=== PATIENT | female | born 1970 | race African-American/Black ===

== ENCOUNTER 2020-06-11 12:38 | Emergency (ER) | payer OTHER, SELFPAY ==
--- NOTE | ~2020-06-11 | CT_ITS ---
EXAMINATION: CT ANGIOGRAM CHEST CLINICAL INFORMATION: Chest pain. Rule out dissection. COMPARISON: None TECHNIQUE: Multiple axial images were obtained through the chest after the administration of 70 mL of Omnipaque 350 intravenous contrast. Extensive vascular post-processing including two-dimensional and three-dimensional reformatted images were created and reviewed on an independent workstation. This CT examination was performed using dose optimization techniques as appropriate, variously including the following: *Automated exposure control *Adjustment of mA and/or kV according to patient size (this includes techniques or standardized protocols for targeted exams where dose is matched to indication/reason for exam; i.e. extremities or head) *Use of iterative reconstruction technique DLP: 356 mGy-cm FINDINGS: The heart is upper normal in size. The thoracic aorta is normal in caliber. No aneurysm or dissection is seen. Great vessel origins are normal. The pulmonary arteries are patent. No pulmonary embolism is seen. There is no pericardial effusion. There are no enlarged hilar or mediastinal lymph nodes. The esophagus is unremarkable. The lungs are clear. There is no pleural effusion, pleural thickening or pneumothorax. No chest wall mass or enlarged axillary lymph nodes are seen. There is a small low-attenuation lesion seen in the upper pole the left kidney measuring 4 mm axial image 58 series 6. This is difficult to characterize due to small size and probably represents a small cyst. There are mild degenerative changes of the spine. CT/CT angio chest IMPRESSION: Upper normal-size heart. Otherwise unremarkable exam. No evidence of aneurysm or dissection.
[2020-06-11 12:43] VITALS: BP 158/97; PULSE 76; RESP 18; TEMP 36.5; O2SAT 100; BMI 33.6
--- NOTE | 2020-06-11 12:45 | ECG_ITS ---
Test Reason : CHEST PAIN Blood Pressure : / mmHG Vent. Rate : 085 BPM Atrial Rate : 085 BPM P-R Int : 132 ms QRS Dur : 084 ms QT Int : 384 ms P-R-T Axes : 067 056 039 degrees QTc Int : 456 ms Normal sinus rhythm Possible Left atrial enlargement Borderline ECG No previous ECGs available Referred By: Haven Lucas Electronically Signed By:Maurisio Acosta
--- NOTE | 2020-06-11 12:48 | ED_ITS ---
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) Timing of current episode: constant and other (slightly improved) Prior episodes: No Onset: during rest Pain location: left chest Pain radiation: none Severity: moderate Quality: tightness Relieving factors: nothing Exacerbating factors: nothing Associated symptoms: dyspnea and other (dizzy) Treatment prior to arrival: none Related Data Allergies Allergy/AdvReac Type Severity Reaction Status Date / Time No Known Allergies Allergy Verified 06/11/20 12:45 Review of Systems Review of Systems: Constitutional : No Weight loss, No Fever, No Chills ENT/Mouth : No sore throat, No Rhinorrhea Eyes: No Eye Pain, No Swelling Cardiovascular : pos Chest Pain, pos SOB, no Dyspnea on Exertion, No Orthopnea, No Edema, No Palpitations Respiratory : No Cough, No Sputum Gastrointestinal : pos Nausea, No Vomiting, No Diarrhea, No abdominal Pain, No Hematochezia, No Melena Genitourinary : No Dysuria, No Urinary Frequency Musculoskeletal : No joint pain, No Myalgias, No Joint Swelling Skin : No Skin Lesions, No rash Neuro : No Weakness, No Numbness, No Dizziness, No Headache Psych : No Anxiety/Panic, No Depression Heme/Lymph: No Bruising, No Lymphadenopathy Endocrine : No Polyuria, No Polydipsia All other systems reviewed and are negative [facility] Past Medical History Attestation statement: The following information was validated with the patient. Medical History Hypertension Social History Social History (Updated 06/11/20 @ 12:59 by Haven Lucas DO) Smoking Status: Never smoker Use of substances other than those prescribed or required for medical reasons: No Advance Directives: No Advance Directives Information Provided: No Physical Exam Vital Signs: Vital Signs: Last Vital Signs Temp 97.7 F 06/11/20 12:43 Pulse 67 06/11/20 15:08 Resp 16 06/11/20 13:30 BP 132/70 06/11/20 15:08 Pulse Ox 100 06/11/20 13:30 Body Mass Index 33.6 Appearance: Alert. Oriented X3. No acute distress. Anxious Eyes: Pupils equal, round and reactive to light. ENT: Pharynx normal. Neck: Normal inspection. Neck supple. CVS: Normal heart rate and rhythm. Pulses normal. Respiratory: No respiratory distress. Breath sounds normal. Abdomen: Soft and nontender. femoral pulses intact and symmetric Skin: Skin warm and dry. Normal skin color. Normal skin turgor. Extremities: No lower extremity edema. No calf ttp Neuro: Oriented X 3. No motor deficit. No sensory deficit. Course Course Course Narrative: chest pain improved. 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) - no fam hx of CAD, no prior chest pain at this time she is PERC negative will obtain labs, serial EKGs, CTA for dissection ordered along with morphine and zofran , of note the patient has not had chest pain when she exerts herself or exercises Lab Data Result diagrams: 06/11/20 13:00 06/11/20 13:00 Labs: Lab Results 06/11/20 06/11/20 06/11/20 Range/Units 13:00 13:00 13:00 WBC 8.0 (4.8-10.8) X10*3/uL RBC 4.30 (4.20-5.50) X10*6/uL Hgb 12.0 (12.0-16.0) g/dl Hct 36.1 L (37-47) % MCV 84.0 (80-98) fL MCH 27.9 (27.0-33.0) pg MCHC 33.2 (31.0-35.0) g/dl RDW 15.0 (11.0-16.0) % Plt Count 313 (160-400) X10*3/uL MPV 10.1 (9.4-12.3) fL Immature Gran % (Auto) 0.1 (0.0-0.4) % Neut % (Auto) 28.2 L (45-73) % Lymph % (Auto) 64.5 H (20-40) % [place] % (Auto) 4.8 (2-11) % Eos % (Auto) 1.9 (0-4) % Baso % (Auto) 0.5 (0-2) % Lymph # (Auto) 5.2 H (1.2-4.9) X10*3/uL [place] # (Auto) 0.4 (0.1-1.2) X10*3/uL Eos # (Auto) 0.2 (0.0-0.4) X10*3/uL Baso # (Auto) 0.0 (0.0-0.2) X10*3/uL Abs Immat Gran (auto) 0.01 (0.00-0.03) X10*3/uL Absolute Neuts (auto) 2.3 (2.0-8.3) X10*3/uL Absolute Nucleated RBC 0.000 (0.0-0.012) X10*3/uL Nucleated RBC % (auto) 0.0 (0.0-0.2) /100WBC Smear Tech's Comments VERIFIED PT 11.8 (10.8-13.0) SEC INR 1.0 (0.9-1.1) APTT 38.7 H (24.1-38.0) SEC D-Dimer < 200 NG/ML Sodium 135 (135-145) mmol/L Potassium 3.8 (3.3-5.1) mmol/L Chloride 101 (96-108) mmol/L Carbon Dioxide 23 (22-29) mmol/L Anion Gap 15 (12-20) BUN 11 (9-16) mg/dL Creatinine 0.92 (0.5-1.4) mg/dL Estim Creat Clear Calc 76.9 Estimated GFR > 60 Random Glucose 94 (60-115) mg/dL Calcium 9.2 (8.4-10.2) mg/dL Magnesium 1.9 (1.6-2.6) mg/dL Total Bilirubin 0.5 (0.0-1.0) mg/dL Direct Bilirubin 0.2 (0.0-0.5) mg/dL AST 20 (5-31) U/L ALT 16 (0-31) U/L Alkaline Phosphatase 58 (39-117) U/L Troponin I High Sens (<3.5-17.0) ng/L Total Protein 7.0 (6.5-8.0) g/dL Albumin 4.2 (3.5-5.0) g/dL 06/11/20 Range/Units 13:00 WBC (4.8-10.8) X10*3/uL RBC (4.20-5.50) X10*6/uL Hgb (12.0-16.0) g/dl Hct (37-47) % MCV (80-98) fL MCH (27.0-33.0) pg MCHC (31.0-35.0) g/dl RDW (11.0-16.0) % Plt Count (160-400) X10*3/uL MPV (9.4-12.3) fL Immature Gran % (Auto) (0.0-0.4) % Neut % (Auto) (45-73) % Lymph % (Auto) (20-40) % [place] % (Auto) (2-11) % Eos % (Auto) (0-4) % Baso % (Auto) (0-2) % Lymph # (Auto) (1.2-4.9) X10*3/uL [place] # (Auto) (0.1-1.2) X10*3/uL Eos # (Auto) (0.0-0.4) X10*3/uL Baso # (Auto) (0.0-0.2) X10*3/uL Abs Immat Gran (auto) (0.00-0.03) X10*3/uL Absolute Neuts (auto) (2.0-8.3) X10*3/uL Absolute Nucleated RBC (0.0-0.012) X10*3/uL Nucleated RBC % (auto) (0.0-0.2) /100WBC Smear Tech's Comments PT (10.8-13.0) SEC INR (0.9-1.1) APTT (24.1-38.0) SEC D-Dimer NG/ML Sodium (135-145) mmol/L Potassium (3.3-5.1) mmol/L Chloride (96-108) mmol/L Carbon Dioxide (22-29) mmol/L Anion Gap (12-20) BUN (9-16) mg/dL Creatinine (0.5-1.4) mg/dL Estim Creat Clear Calc Estimated GFR Random Glucose (60-115) mg/dL Calcium (8.4-10.2) mg/dL Magnesium (1.6-2.6) mg/dL Total Bilirubin (0.0-1.0) mg/dL Direct Bilirubin (0.0-0.5) mg/dL AST (5-31) U/L ALT (0-31) U/L Alkaline Phosphatase (39-117) U/L Troponin I High Sens < 3.5 (<3.5-17.0) ng/L Total Protein (6.5-8.0) g/dL Albumin (3.5-5.0) g/dL ECG Data ECG #1: Attestation: I personally reviewed and interpreted this ECG as follows: ECG interpretation date: 06/11/20 ECG interpretation time: 12:57 Interpretation: Rate: 85 Rhythm: NSR [place]: normal Normal P waves. Normal CASE. Normal QRS complex. ST T wave: nonspecific V2-V3 no TOMAS qTC: normal prior studies: none The study has been interpreted contemporaneously by me. EKG #2 Rate: 74 Rhythm: NSR [place]: normal Normal P waves. Normal CASE. Normal QRS complex. ST T wave : normal, no TOMAS qTC: normal prior studies: no acute ischemia The study has been interpreted contemporaneously by me. . ECG #3: Attestation: I personally reviewed and interpreted this ECG as follows: ECG interpretation date: 06/11/20 ECG interpretation time: 14:51 Interpretation: Rate: 67 Rhythm: NSR [place]: normal Normal P waves. Normal CASE. Normal QRS complex. ST T wave : nonspecific, no TOMAS qTC: normal prior studies: no change no acute ischemia The study has been interpreted contemporaneously by me. . Discharge Plan Discharge Clinical Impression: Chest pain Qualifiers: Chest pain type: unspecified Qualified Code(s): R07.9 - Chest pain, unspecified Instructions: Chest Pain (ED) Additional Instructions: return to ED for any worsening symptoms or concerns Referrals: Physician,Unknown [Primary Care Provider] - 3 days (referral for outpatient stress test) Stand Alone Forms: Work/School Release
[2020-06-11 13:11] LABS: Basophils Percent Auto 0.5 % (0-2); Eosinophils Absolute Auto 0.2 X10*3/uL (0.0-0.4); Eosinophils Percent Auto 1.9 % (0-4); Hematocrit 36.1 % (37-47); Imm Gran Abs Auto 0.01 X10*3/uL (0.00-0.03); Imm Gran Pct Auto 0.1 % (0.0-0.4); Lymphocytes Absolute Auto 5.2 X10*3/uL (1.2-4.9); Lymphocytes Percent Auto 64.5 % (20-40); MANUAL DIFF FLAG SCAN; Mean Corpuscular HGB Conc 33.2 g/dl (31.0-35.0); Mean Corpuscular Hemoglobin 27.9 pg (27.0-33.0); Mean Platelet Volume 10.1 fL (9.4-12.3); Monocytes Absolute Auto 0.4 X10*3/uL (0.1-1.2); Monocytes Percent Auto 4.8 % (2-11); Neutrophils Absolute Auto 2.3 X10*3/uL (2.0-8.3); Neutrophils Percent Auto 28.2 % (45-73); Platelet Count 313 X10*3/uL (160-400); SCAN SMEAR FLAG 1
[2020-06-11 13:16] LABS: Prothrombin Time 11.8 SEC (10.8-13.0)
[2020-06-11 13:19] LABS: Partial Thromboplastin Time 38.7 SEC (24.1-38.0)
[2020-06-11 13:23] LABS: D Dimer < 200 NG/ML
[2020-06-11] MEDS: iohexoL 350 MG/ML 100 ML INFUS..BTL 70 ML IV (13:23)
[2020-06-11] MEDS: ondansetron HCL 4 MG/2 ML VIAL IVPUSH (13:27)
[2020-06-11] MEDS: Morphine Sulfate 4 MG/ML CARTRIDGE IVPUSH (13:29)
[2020-06-11 13:30] VITALS: BP 170/86; PULSE 67; RESP 16; O2SAT 100
[2020-06-11 13:32] LABS: SLIDE REVIEW VERIFIED
[2020-06-11 13:35] LABS: Alanine Aminotransferase 16 U/L (0-31); Albumin Level 4.2 g/dL (3.5-5.0); Alkaline Phosphatase 58 U/L (39-117); Anion Gap 15 (12-20); Aspartate Amino Transferase 20 U/L (5-31); Bilirubin Direct 0.2 mg/dL (0.0-0.5); Bilirubin Total 0.5 mg/dL (0.0-1.0); Blood Urea Nitrogen 11 mg/dL (9-16); Calcium 9.2 mg/dL (8.4-10.2); Carbon Dioxide 23 mmol/L (22-29); Chloride 101 mmol/L (96-108); Creatinine Clr Calc Pharmacy 76.9; Estimated Glomerular Filt Rate > 60; Glucose Random 94 mg/dL (60-115); Magnesium 1.9 mg/dL (1.6-2.6); Potassium 3.8 mmol/L (3.3-5.1); Sodium 135 mmol/L (135-145)
[2020-06-11 13:38] LABS: Troponin-I High Sensitivity < 3.5 ng/L (<3.5-17.0)
--- NOTE | 2020-06-11 14:36 | ECG_ITS ---
Test Reason : CHEST PAIN Blood Pressure : / mmHG Vent. Rate : 074 BPM Atrial Rate : 074 BPM P-R Int : 132 ms QRS Dur : 094 ms QT Int : 410 ms P-R-T Axes : 053 055 035 degrees QTc Int : 455 ms Normal sinus rhythm Normal ECG When compared with ECG of 11-JUN-2020 12:41, No significant change was found Referred By: Haven Lucas Electronically Signed By:Maurisio Acosta
--- NOTE | 2020-06-11 14:45 | ECG_ITS ---
Test Reason : REPEAT Blood Pressure : / mmHG Vent. Rate : 067 BPM Atrial Rate : 067 BPM P-R Int : 136 ms QRS Dur : 084 ms QT Int : 420 ms P-R-T Axes : 043 035 037 degrees QTc Int : 443 ms Normal sinus rhythm Nonspecific T wave abnormality Abnormal ECG When compared with ECG of 11-JUN-2020 12:46, No significant change was found Referred By: Haven Lucas Electronically Signed By:Maurisio Acosta
--- NOTE | 2020-06-11 15:07 | PC.NURSE ---
RESTING IN NAD. PAIN 3/10. FEELING BETTER. WILL HAVE REPEAT TROP AT 1600
[2020-06-11 15:08] VITALS: BP 132/70; PULSE 67
[2020-06-11] MEDS: Aspirin 81 MG TAB.CHEW 162 MG PO (15:36)
[2020-06-11 16:05] VITALS: BP 135/69; PULSE 72; RESP 17; TEMP 36.4; O2SAT 100
[2020-06-11 17:06] LABS: Troponin-I High Sensitivity < 3.5 ng/L (<3.5-17.0)
--- NOTE | 2020-06-11 17:50 | PC.NURSE ---
CLEARED FOR DC BY PROVIDER AFTER NEG SECOND TROP. HAS RIDE. NO DISTRESS
== END 2020-06-11 17:51 | disposition home or self-care (01) ==
PROVIDERS: Emergency Provider Emergency Medicine
DX: R07.9 Chest pain, unspecified (principal); I10 Essential (primary) hypertension; R42 Dizziness and giddiness
CPT/HCPCS: 36415; 71275; 80048; 80076; 83735; 84484; 85025; 85379; 85610; 85730; 93005; 96374; 96375; 99283; 99284; J2270; J2405; Q9967

== ENCOUNTER 2020-08-11 10:42 | Emergency (ER) | payer OTHER, SELFPAY ==
--- NOTE | 2020-08-11 | ECG_ITS ---
Test Reason : CHEST PAIN Blood Pressure : / mmHG Vent. Rate : 079 BPM Atrial Rate : 079 BPM P-R Int : 128 ms QRS Dur : 088 ms QT Int : 374 ms P-R-T Axes : 053 055 040 degrees QTc Int : 428 ms Normal sinus rhythm Nonspecific T wave abnormality Abnormal ECG When compared with ECG of 11-JUN-2020 14:46, No significant change was found Referred By: Generic ED Physician Electronically Signed By:Maurisio Acosta
--- NOTE | ~2020-08-11 | XR_ITS ---
EXAMINATION: XR CHEST CLINICAL INFORMATION: Chest pain COMPARISON: CT angiography of the chest of June 11, 2020 TECHNIQUE: AP portable view of the chest was obtained. FINDINGS: No significant abnormality is noted involving the heart, lungs, mediastinum, bony thorax or soft tissues. XR/XR chest 1V IMPRESSION: No acute disease.
[2020-08-11 10:51] VITALS: BP 164/89; PULSE 80; RESP 15; TEMP 36.8; O2SAT 99; BMI 33.5
[2020-08-11 11:14] VITALS: BP 138/91; PULSE 82; RESP 14; O2SAT 95
--- NOTE | 2020-08-11 11:22 | ED_ITS ---
HPI - Chest Pain General Chief Complaint: Chest Pain Stated Complaint: CHEST PAIN Time Seen by Provider: 08/11/20 11:21 Source: patient Mode of arrival: ambulatory Limitations: no limitations History of Present Illness HPI narrative: 50-year-old female who came to the emergency department for further evaluation of chest pain. 50-year-old female presented with right-sided chest pain, started at 06:00 (5 hours ago). Pain is localized to the right side of the chest with no radiation, pain was described as constant and moderate 5/10, pain is worsening with taking a deep breath, nothing improves the pain. No coughing, no trauma to the chest. 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 Related Data Allergies Allergy/AdvReac Type Severity Reaction Status Date / Time No Known Allergies Allergy Verified 06/11/20 12:45 Review of Systems Review of Systems: All other systems are reviewed and are negative Constitutional: Reports as per HPI and Reports no additional constitutional complaints Eyes: Reports as per HPI and Reports no additional eye complaints Reports system reviewed and no additional complaints, except as documented Cardiovascular: Reports as per HPI and Reports no additional cardiovascular complaints Respiratory: Reports as per HPI and Reports no additional respiratory complaints Gastrointestinal: Reports as per HPI and Reports no additional gastrointestinal complaints Genitourinary: Reports no additional female genitourinary complaints Musculoskeletal: Reports no additional musculoskeletal complaints Skin/Breast: Reports system reviewed and no additional complaints, except as docu Psychiatric: Reports no additional psychiatric complaints Endocrine: Reports no additional endocrine complaints Hematologic/Lymphatic: Reports no additional hematologic/lymphatic complaints Allergic/Immunologic: Reports no additional allergic/immunologic complaints Reports system reviewed and no additional complaints, except as documented and Reports Abnormal speech present [facility] Past Medical History Medical History Hypertension Social History Social History Alcohol intake: never Smoking Status: Never smoker Use of substances other than those prescribed or required for medical reasons: No Advance Directives: Yes Advance Directives Information Provided: Yes Advance Directives on File: No Physical Exam Vital Signs: Vital Signs: Last Vital Signs Temp 97.7 F 08/11/20 14:17 Pulse 66 08/11/20 14:17 Resp 20 08/11/20 14:17 BP 119/76 08/11/20 14:17 Pulse Ox 98 08/11/20 14:17 Body Mass Index 33.5 Vital signs have been reviewed as appeared to be correct. Blood pressure normal. Heart rate normal. Respiration rate normal. Temperature normal. Oxygen saturation normal. Appearance: Alert. Oriented X3. No acute distress. Head: Normal external exam. Normocephalic. Atraumatic. No [place] signs noted. No raccoon eyes noted Eyes: PERRLA. EOMI. Conjunctiva and sclera normal. Eyelids normal. ENT: TM's Normal. Pharynx normal. Uvula midline. Moist mucous membranes. No trismus noted. No drooling noted. No muffled voice noted. Neck: Normal inspection. Neck supple. FROM. No adenopathy. Thyroid Normal. No meningeal signs. No neck mass noted. CVS: Normal heart rate and rhythm. Heart sound normal. No murmurs noted. Pulses normal throughout. Respiratory: No respiratory distress. Painless inspiration. Breath sounds normal. No wheezes/rales/rhonchi noted. Chest nontender. No accessory muscle usage noted or decreased air movement noted. Abdomen: Soft and nontender. Bowel sounds normal in all 4 quadrants. No distention noted. No organomegaly noted. No visible injury noted. Back: No CVA tenderness. Full range of motion noted. Skin: Skin warm and dry. Normal skin color. Normal skin turgor. No rashes/lesions/lacerations noted. Extremities: No lower extremity edema. Extremities exhibit normal range of motion. Extremities nontender. Neuro: Oriented X 3. No motor deficit. No sensory deficit. Reflexes normal. Course Course Course Narrative: Assessment and plan. 50-year-old female came in with right-sided chest pain since 06:00 o'clock in the morning, patient had unremarkable EKG for ACS, 2 troponins are negative, D- dimer is also negative. Pain is likely to be chest wall related. Patient was instructed to keep out the appointment for her next stress test next months, and use NSAIDs if needed for pain. Patient had a similar presentation to the ED 2 months ago and had PE workup CT which was unremarkable. MDM - Chest Pain Lab Data Attestation: I reviewed the patient's lab results. Result diagrams: 08/11/20 11:57 08/11/20 11:57 Labs: Lab Results 08/11/20 08/11/20 08/11/20 Range/Units 11:49 11:49 11:49 WBC (4.8-10.8) X10*3/uL RBC (4.20-5.50) X10*6/uL Hgb (12.0-16.0) g/dl Hct (37-47) % MCV (80-98) fL MCH (27.0-33.0) pg MCHC (31.0-35.0) g/dl RDW (11.0-16.0) % Plt Count (160-400) X10*3/uL MPV (9.4-12.3) fL Immature Gran % (Auto) (0.0-0.4) % Neut % (Auto) (45-73) % Lymph % (Auto) (20-40) % [place] % (Auto) (2-11) % Eos % (Auto) (0-4) % Baso % (Auto) (0-2) % Lymph # (Auto) (1.2-4.9) X10*3/uL [place] # (Auto) (0.1-1.2) X10*3/uL Eos # (Auto) (0.0-0.4) X10*3/uL Baso # (Auto) (0.0-0.2) X10*3/uL Abs Immat Gran (auto) (0.00-0.03) X10*3/uL Absolute Neuts (auto) (2.0-8.3) X10*3/uL Absolute Nucleated RBC (0.0-0.012) X10*3/uL Nucleated RBC % (auto) (0.0-0.2) /100WBC D-Dimer NG/ML Sodium (135-145) mmol/L Potassium (3.3-5.1) mmol/L Chloride (96-108) mmol/L Carbon Dioxide (22-29) mmol/L Anion Gap (12-20) BUN (9-16) mg/dL Creatinine (0.5-1.4) mg/dL Estim Creat Clear Calc Estimated GFR Random Glucose (60-115) mg/dL Calcium (8.4-10.2) mg/dL Total Bilirubin (0.0-1.0) mg/dL Direct Bilirubin (0.0-0.5) mg/dL AST (5-31) U/L ALT (0-31) U/L Alkaline Phosphatase (39-117) U/L Troponin I High Sens (<3.5-17.0) ng/L B-Natriuretic Peptide (<100) pg/mL Total Protein (6.5-8.0) g/dL Albumin (3.5-5.0) g/dL Lipase (8-78) U/L Urine Color YELLOW Urine Appearance CLEAR Urine pH 7.0 (5.0-8.0) Ur Specific [place] 1.010 (1.005-1.025) Urine Protein NEG (NEG-TRACE) MG/DL Urine Glucose (UA) NEG (NEG) MG/DL Urine Ketones NEG (NEG) MG/DL Urine Blood NEG (NEG) Urine Nitrite NEG (NEG) Ur Leukocyte Esterase NEG (NEG) Urine Test NEGATIVE (NEGATIVE) COVID-19 (AR) Negative (Negative) COVID-19 Clin Com See Note 08/11/20 08/11/20 08/11/20 Range/Units 11:57 11:57 11:57 WBC 6.1 (4.8-10.8) X10*3/uL RBC 4.10 L (4.20-5.50) X10*6/uL Hgb 11.3 L (12.0-16.0) g/dl Hct 35.4 L (37-47) % MCV 86.3 (80-98) fL MCH 27.6 (27.0-33.0) pg MCHC 31.9 (31.0-35.0) g/dl RDW 15.5 (11.0-16.0) % Plt Count 258 (160-400) X10*3/uL MPV 9.9 (9.4-12.3) fL Immature Gran % (Auto) 0.2 (0.0-0.4) % Neut % (Auto) 50.6 (45-73) % Lymph % (Auto) 41.4 H (20-40) % [place] % (Auto) 5.1 (2-11) % Eos % (Auto) 2.0 (0-4) % Baso % (Auto) 0.7 (0-2) % Lymph # (Auto) 2.5 (1.2-4.9) X10*3/uL [place] # (Auto) 0.3 (0.1-1.2) X10*3/uL Eos # (Auto) 0.1 (0.0-0.4) X10*3/uL Baso # (Auto) 0.0 (0.0-0.2) X10*3/uL Abs Immat Gran (auto) 0.01 (0.00-0.03) X10*3/uL Absolute Neuts (auto) 3.1 (2.0-8.3) X10*3/uL Absolute Nucleated RBC 0.000 (0.0-0.012) X10*3/uL Nucleated RBC % (auto) 0.0 (0.0-0.2) /100WBC D-Dimer < 200 NG/ML Sodium 139 (135-145) mmol/L Potassium 4.2 (3.3-5.1) mmol/L Chloride 105 (96-108) mmol/L Carbon Dioxide 26 (22-29) mmol/L Anion Gap 12 (12-20) BUN 14 (9-16) mg/dL Creatinine 0.84 (0.5-1.4) mg/dL Estim Creat Clear Calc 84.1 Estimated GFR > 60 Random Glucose 96 (60-115) mg/dL Calcium 9.0 (8.4-10.2) mg/dL Total Bilirubin 0.4 (0.0-1.0) mg/dL Direct Bilirubin < 0.2 (0.0-0.5) mg/dL AST 16 (5-31) U/L ALT 16 (0-31) U/L Alkaline Phosphatase 58 (39-117) U/L Troponin I High Sens (<3.5-17.0) ng/L B-Natriuretic Peptide (<100) pg/mL Total Protein 6.6 (6.5-8.0) g/dL Albumin 4.0 (3.5-5.0) g/dL Lipase 40 (8-78) U/L Urine Color Urine Appearance Urine pH (5.0-8.0) Ur Specific [place] (1.005-1.025) Urine Protein (NEG-TRACE) MG/DL Urine Glucose (UA) (NEG) MG/DL Urine Ketones (NEG) MG/DL Urine Blood (NEG) Urine Nitrite (NEG) Ur Leukocyte Esterase (NEG) Urine Test (NEGATIVE) COVID-19 (AR) (Negative) COVID-19 Clin Com 08/11/20 Range/Units 11:57 WBC (4.8-10.8) X10*3/uL RBC (4.20-5.50) X10*6/uL Hgb (12.0-16.0) g/dl Hct (37-47) % MCV (80-98) fL MCH (27.0-33.0) pg MCHC (31.0-35.0) g/dl RDW (11.0-16.0) % Plt Count (160-400) X10*3/uL MPV (9.4-12.3) fL Immature Gran % (Auto) (0.0-0.4) % Neut % (Auto) (45-73) % Lymph % (Auto) (20-40) % [place] % (Auto) (2-11) % Eos % (Auto) (0-4) % Baso % (Auto) (0-2) % Lymph # (Auto) (1.2-4.9) X10*3/uL [place] # (Auto) (0.1-1.2) X10*3/uL Eos # (Auto) (0.0-0.4) X10*3/uL Baso # (Auto) (0.0-0.2) X10*3/uL Abs Immat Gran (auto) (0.00-0.03) X10*3/uL Absolute Neuts (auto) (2.0-8.3) X10*3/uL Absolute Nucleated RBC (0.0-0.012) X10*3/uL Nucleated RBC % (auto) (0.0-0.2) /100WBC D-Dimer NG/ML Sodium (135-145) mmol/L Potassium (3.3-5.1) mmol/L Chloride (96-108) mmol/L Carbon Dioxide (22-29) mmol/L Anion Gap (12-20) BUN (9-16) mg/dL Creatinine (0.5-1.4) mg/dL Estim Creat Clear Calc Estimated GFR Random Glucose (60-115) mg/dL Calcium (8.4-10.2) mg/dL Total Bilirubin (0.0-1.0) mg/dL Direct Bilirubin (0.0-0.5) mg/dL AST (5-31) U/L ALT (0-31) U/L Alkaline Phosphatase (39-117) U/L Troponin I High Sens < 3.5 (<3.5-17.0) ng/L B-Natriuretic Peptide 12 (<100) pg/mL Total Protein (6.5-8.0) g/dL Albumin (3.5-5.0) g/dL Lipase (8-78) U/L Urine Color Urine Appearance Urine pH (5.0-8.0) Ur Specific [place] (1.005-1.025) Urine Protein (NEG-TRACE) MG/DL Urine Glucose (UA) (NEG) MG/DL Urine Ketones (NEG) MG/DL Urine Blood (NEG) Urine Nitrite (NEG) Ur Leukocyte Esterase (NEG) Urine Test (NEGATIVE) COVID-19 (AR) (Negative) COVID-19 Clin Com Imaging Data Chest x-ray: Radiologist's impression: No acute intrathoracic pathology. ECG Data ECG #1: Interpretation: Normal sinus rhythm at 79 beats per minutes, normal axis, normal intervals, T-wave flattening in V4, V5. Discharge Plan Discharge Clinical Impression: Atypical chest pain Patient Disposition: Home, Self-Care Instructions: Chest Pain (ED) Additional Instructions: Keep the appointment for your stress test with your information broker. Referrals: Physician,Unknown [Primary Care Provider] - 2 days
[2020-08-11 12:05] LABS: MANUAL DIFF FLAG NO
[2020-08-11 12:06] LABS: Basophils Percent Auto 0.7 % (0-2); Eosinophils Absolute Auto 0.1 X10*3/uL (0.0-0.4); Hematocrit 35.4 % (37-47); Hemoglobin 11.3 g/dl (12.0-16.0); Imm Gran Abs Auto 0.01 X10*3/uL (0.00-0.03); Imm Gran Pct Auto 0.2 % (0.0-0.4); Lymphocytes Absolute Auto 2.5 X10*3/uL (1.2-4.9); Lymphocytes Percent Auto 41.4 % (20-40); Mean Corpuscular HGB Conc 31.9 g/dl (31.0-35.0); Mean Corpuscular Hemoglobin 27.6 pg (27.0-33.0); Mean Corpuscular Volume 86.3 fL (80-98); Mean Platelet Volume 9.9 fL (9.4-12.3); Monocytes Absolute Auto 0.3 X10*3/uL (0.1-1.2); Monocytes Percent Auto 5.1 % (2-11); Neutrophils Absolute Auto 3.1 X10*3/uL (2.0-8.3); Neutrophils Percent Auto 50.6 % (45-73); Platelet Count 258 X10*3/uL (160-400); Red Cell Distribution Width 15.5 % (11.0-16.0); White Blood Count 6.1 X10*3/uL (4.8-10.8)
[2020-08-11 12:14] LABS: Glucose Urine UA NEG (NEG); Leukocyte Esterase Urine NEG (NEG); Nitrite Urine NEG (NEG); Urine Blood NEG (NEG); Urine Ketones NEG (NEG); Urine Protein NEG (NEG-TRACE)
[2020-08-11 12:15] LABS: Appearance Urine CLEAR; Color Urine YELLOW
[2020-08-11 12:16] LABS: UPreg QC Valid YES; Urine Pregnancy NEGATIVE (NEGATIVE)
[2020-08-11 12:18] LABS: D Dimer < 200 NG/ML
[2020-08-11 12:28] LABS: COVID-19 Test Negative (Negative); IDNOW Serial# 9DD0AD1C
[2020-08-11 12:41] LABS: Alanine Aminotransferase 16 U/L (0-31); Alkaline Phosphatase 58 U/L (39-117); Anion Gap 12 (12-20); Aspartate Amino Transferase 16 U/L (5-31); Bilirubin Direct < 0.2 mg/dL (0.0-0.5); Bilirubin Total 0.4 mg/dL (0.0-1.0); Blood Urea Nitrogen 14 mg/dL (9-16); Carbon Dioxide 26 mmol/L (22-29); Chloride 105 mmol/L (96-108); Creatinine Clr Calc Pharmacy 84.1; Estimated Glomerular Filt Rate > 60; Glucose Random 96 mg/dL (60-115); Lipase 40 U/L (8-78); Potassium 4.2 mmol/L (3.3-5.1); Sodium 139 mmol/L (135-145); Total Protein 6.6 g/dL (6.5-8.0)
[2020-08-11 12:42] VITALS: BP 135/77; PULSE 71; RESP 12; TEMP 36.5; O2SAT 100
[2020-08-11 12:51] LABS: Troponin-I High Sensitivity < 3.5 ng/L (<3.5-17.0)
[2020-08-11 13:08] LABS: B Type Natriuretic Peptide 12 pg/mL (<100)
[2020-08-11 14:17] VITALS: BP 119/76; PULSE 66; RESP 20; TEMP 36.5; O2SAT 98
[2020-08-11 16:08] VITALS: BP 138/83; PULSE 69; RESP 12; TEMP 36.4; O2SAT 99
[2020-08-11 16:27] LABS: Troponin-I High Sensitivity < 3.5 ng/L (<3.5-17.0)
[2020-08-11 17:26] VITALS: BP 144/82; PULSE 76; RESP 18; TEMP 36.3; O2SAT 100
== END 2020-08-11 17:48 | disposition home or self-care (01) ==
PROVIDERS: Emergency Provider Emergency Medicine
DX: R07.89 Other chest pain (principal); R07.81 Pleurodynia; I10 Essential (primary) hypertension; Z20.822 Contact with and (suspected) exposure to COVID-19; Z79.899 Other long term (current) drug therapy
CPT/HCPCS: 36415; 71045; 80048; 80076; 81003; 81025; 83690; 83880; 84484; 85025; 85379; 87635; 93005; 99284; 99285

== ENCOUNTER 2021-01-06 14:38 | Emergency (ER) | payer OTHER, SELFPAY ==
[2021-01-06 14:40] VITALS: BP 184/103; PULSE 94; RESP 18; TEMP 36.3; O2SAT 99; BMI 33.5
--- NOTE | 2021-01-06 16:10 | ED_ITS ---
HPI - Dental/Oral General Chief complaint: Dental/Oral Stated complaint: Tooth Pain Time Seen by Provider: 01/06/21 15:06 Source: patient Mode of arrival: ambulatory Limitations: no limitations History of Present Illness HPI Narrative: Right dental pain that started last night. Patient when she got to work today and started eating sinhala fries, the pain was 10/10. She is able to eat and drink, is able to swallow, she does have a dentist. She can open her mouth all the way. No fevers. States she had the same pain 3 months ago but it went away. MD Complaint: tooth pain Location: Tooth # (2) Teeth map: 1. painful Onset (ago): day(s) (1) Duration: constant Severity: severe Severity scale (1-10): 10 Relieving factors: nothing Exacerbating factors: chewing Context: history of dental caries Treatment prior to arrival: none Related Data Previous Rx's Medication Instructions Recorded clindamycin HCl 300 mg capsule 300 mg PO Q6H 10 Days #40 cap 01/06/21 oxycodone 5 mg capsule 5 mg PO Q8H PRN #9 cap 01/06/21 Allergies Allergy/AdvReac Type Severity Reaction Status Date / Time No Known Allergies Allergy Verified 01/06/21 14:40 Review of Systems Review of Systems: Constitutional : No Weight loss, No Fever, No Chills, No Night Sweats,No Fatigue, No Malaise ENT/Mouth : dental pain, No Hearing loss, No Ear Pain, No Nasal Congestion, No Sinus Pain, No Hoarseness, No sore throat, No Rhinorrhea, NoSwallowing Difficulty Eyes: No Eye Pain, No Swelling, No Redness, No Foreign Body, NoDischarge, No Vision Changes Cardiovascular : No Chest Pain, No SOB, No Dyspnea on Exertion, NoOrthopnea, No Edema, No Palpitations Respiratory : No Cough, No Sputum, No Wheezing, No Smoke Exposure, No Dyspnea Gastrointestinal : No Nausea, No Vomiting, No Diarrhea, NoConstipation, No abdominal Pain, No Hematochezia, No Melena Musculoskeletal : No joint pain, No Myalgias, No Joint Swelling Skin : No Skin Lesions, No rash Neuro : No Weakness, No Numbness, No Paresthesias, No Loss ofConsciousness, No Dizziness, No Headache PMFSH Past Medical History Medical History Hypertension Social History Social History Alcohol intake: never Advance Directives: No Physical Exam Vital Signs: Vital Signs: Last Vital Signs Temp 97.4 F 01/06/21 14:40 Pulse 94 01/06/21 14:40 Resp 18 01/06/21 14:40 BP 184/103 H 01/06/21 14:40 Pulse Ox 99 01/06/21 14:40 Body Mass Index 33.5 Const: General: cooperative, no acute distress, well developed, alert and awake Nutritional Appearance: well nourished Orientation/consciousness: patient oriented x3 Limitations: no limitations HENMT: Head: Yes normocephalic and Yes atraumatic Ears: hearing grossly normal bilaterally Face and sinus: Yes sinuses nontender, No erythema and No edema Mouth: Normal oral and palatal mucosa present and moist mucous membranes Teeth and gingiva: gingiva normal and fair dentition Teeth image: 1. area of tenderness, no fluctuance or drainable abscess Throat: Yes posterior oropharynx normal Eyes: Conjunctivae: conjunctivae normal Pupils: Equal, round and reactive pupils present EOM: EOMs intact bilaterally Neck: Neck: Yes full ROM, Yes no lymphadenopathy and Yes supple Resp: Effort & Inspection: normal respiratory effort and able to speak in complete sentences Auscultation: clear to auscultation bilaterally, no crackles, no rales, no rhonchi and no wheezes Cardio: Rate: regular rate Rhythm: regular rhythm Heart sounds: S1 normal heart sound present and S2 normal heart sound present Skin: General skin exam: no rashes or lesions noted Neuro: General: patient oriented x3, tone normal and moves all extremities Cranial nerves: Yes Equal, round and reactive pupils present Extrem: General: Yes normal to inspection and Yes full ROM Psych: Appearance: grossly normal Affect: normal affect Attitude: coope rative Thought process: Normal thought process present Course Course Course Narrative: Dental discomfort .top right molar that started today. ? No fevers.? No trismus.? Patient can eat and drink.? On exam, patient has stable vitals, can open her mouth all the way, tooth number 2 in painful.? No palpable gingival abscess, no cellulitis of the gingiva.? No submandibular swelling, no swelling of the floor of the mouth. Mild right facial swelling. Discharge Plan Discharge Clinical Impression: Toothache Patient Disposition: Home, Self-Care Instructions: Dental Abscess (ED) Additional Instructions: Please call your dentist. Call them today, get an appointment as soon as poss ible. Start your antibiotics and take them every 6 hours. Take the pain medicine is needed. If you have trouble opening her mouth, fevers, if you cannot eat or drink, feels nausea or vomiting, or any other new or concerning symptoms please return to the Emergency fever Prescriptions: New oxycodone 5 mg capsule 5 mg PO Q8H PRN (Reason: pain) Qty: 9 RF: 0 clindamycin HCl 300 mg capsule 300 mg PO Q6H 10 Days Qty: 40 RF: 0 Stand Alone Forms: Work/School Release Interventions: ED Discharge Assessment Last Done: 01/06/21 15:48 Discharge Date/Time: 01/06/21 15:49
== END 2021-01-06 15:49 | disposition home or self-care (01) ==
PROVIDERS: Emergency Provider Emergency Medicine
DX: K08.89 Other specified disorders of teeth and supporting structures (principal)
CPT/HCPCS: 99283

== ENCOUNTER 2021-04-05 12:48 | Emergency (ER) | payer OTHER, SELFPAY ==
[2021-04-05 12:52] VITALS: BP 162/104; PULSE 92; RESP 18; TEMP 36.3; O2SAT 100; BMI 31.7
[2021-04-05] MEDS: Acetaminophen 325 MG TABLET 650 MG PO (13:12)
[2021-04-05] MEDS: LORazepam 1 MG TABLET PO (13:13)
--- NOTE | 2021-04-05 13:44 | ED_ITS ---
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 Earlier this afternoon, patient states that she had a negative interaction with a co-worker, patient states that she has had multiple incidents in the past. Patient became very anxious, started crying. Patient did not pass out, head injury, denies chest pain or shortness of breath. Related Data Previous Rx's Medication Instructions Recorded clindamycin HCl 300 mg capsule 300 mg PO Q6H 10 Days #40 cap 01/06/21 oxycodone 5 mg capsule 5 mg PO Q8H PRN #9 cap 01/06/21 Allergies Allergy/AdvReac Type Severity Reaction Status Date / Time No Known Allergies Allergy Verified 01/06/21 14:40 Review of Systems Review of Systems: Constitutional : No Weight loss, No Fever, No Chills, No Night Sweats, No Fatigue, No Malaise ENT/Mouth : No Hearing loss, No Ear Pain, No Nasal Congestion, No Sinus Pain, No Hoarseness, No sore throat, No Rhinorrhea, No Swallowing Difficulty Eyes: No Eye Pain, No Swelling, No Redness, No Foreign Body, No Discharge, No Vision Changes Cardiovascular : No Chest Pain, No SOB, No Dyspnea on Exertion, No Orthopnea, No Edema, No Palpitations Respiratory : No Cough, No Sputum, No Wheezing, No Smoke Exposure, No Dyspnea Gastrointestinal : No Nausea, No Vomiting, No Diarrhea, No Constipation, No abdominal Pain, No Hematochezia, No Melena Genitourinary : no irregular bleeding, No Dysuria, No Urinary Frequency, No Hematuria, No Urinary Incontinence, No Urgency, No Flank Pain, No Urinary Flow Changes, No Hesitancy Musculoskeletal : No joint pain, No Myalgias, No Joint Swelling Skin : No Skin Lesions, No rash Neuro : No Weakness, No Numbness, No Paresthesias, No Loss of Consciousness, No Dizziness, complaining of Headache Psych : Complain of anxiety, No Depression, No SI/HI/AH/VH, having trouble with co-worker Heme/Lymph: No Bruising, No Bleeding,No Lymphadenopathy Endocrine : No Polyuria, No Polydipsia, No Temperature Intolerance [facility] Past Medical History Medical History Hypertension Social History Social History Alcohol intake: never Patient Tobacco Use Status: Never used Tobacco Use of substances other than those prescribed or required for medical reasons: No Advance Directives: No Advance Directives Information Provided: No Physical Exam Vital Signs: Vital Signs: Last Vital Signs Temp 97.3 F 04/05/21 12:52 Pulse 92 04/05/21 12:52 Resp 18 04/05/21 12:52 BP 162/104 H 04/05/21 12:52 Pulse Ox 100 04/05/21 12:52 BMI result Body Mass Index 31.7 Const: Other: Appearance: Alert. Oriented X3. Very anxious, tearful Eyes: Pupils equal, round and reactive to light. ENT: Pharynx normal. Neck: Normal inspection. Neck supple. No lymph nodes noted. No crepitus CVS: Normal heart rate and rhythm. Pulses normal. Normal S1 and S2 Respiratory: No respiratory distress. Breath sounds normal. No Wheezing. No rales Abdomen: Soft and nontender. No rigidity. No distention. good BS x4 Skin: Skin warm and dry. Normal skin color. Normal skin turgor. Extremities: No lower extremity edema. No Lacerations. No Rash Neuro: Oriented X 3. No motor deficit. No sensory deficit. Moving all extermities. No slurred speech. Course Course Course Narrative: Patient was given 1 dose of p.o. Ativan and Tylenol for her headache. Overall, patient feeling better, more calm, patient was given the choice to be discharged home and states there was the day of versus returning to work. Patient requested to be sent back to work. Discharge Plan Discharge Clinical Impression: Acute anxiety Patient Disposition: Home, Self-Care Instructions: Anxiety (ED) Additional Instructions: Please follow-up with your primary care physician tomorrow. If you have any worsening or new symptoms, please return to the emergency room or call 911 Prescriptions: No Action oxycodone 5 mg capsule 5 mg PO Q8H PRN (Reason: pain) Qty: 9 RF: 0 clindamycin HCl 300 mg capsule 300 mg PO Q6H 10 Days Qty: 40 RF: 0 Stand Alone Forms: Work/School Release
--- NOTE | 2021-04-05 14:05 | PC.NURSE ---
nad, no complaints, skin wpd, states she is ready to go home
[2021-04-05 14:19] VITALS: BP 154/87; PULSE 86; RESP 16; O2SAT 100
== END 2021-04-05 15:04 | disposition home or self-care (01) ==
PROVIDERS: Emergency Provider Emergency Medicine
DX: F41.9 Anxiety disorder, unspecified (principal); R51.9 Headache, unspecified; I10 Essential (primary) hypertension; Z72.89 Other problems related to lifestyle; Z56.4 Discord with boss and workmates
CPT/HCPCS: 99283; 99284

== ENCOUNTER 2021-07-20 10:08 | Emergency (ER) | payer OTHER, SELFPAY ==
--- NOTE | ~2021-07-20 | CT_ITS ---
EXAMINATION: CT ABDOMEN AND PELVIS WITHOUT CONTRAST CLINICAL INFORMATION: Right upper and right lower quadrant abdominal and flank pain. COMPARISON: None TECHNIQUE: Multidetector volumetric imaging was performed from the superior aspect of the liver through the pubic symphysis. Sagittal and coronal reformatted images were obtained on the technologist's workstation. This CT examination was performed using dose optimization techniques as appropriate, variously including the following: *Automated exposure control *Adjustment of mA and/or kV according to patient size (this includes techniques or standardized protocols for targeted exams where dose is matched to indication/reason for exam; i.e. extremities or head) *Use of iterative reconstruction technique DLP: 646 mGy-cm FINDINGS: Technically limited study due to motion related artifacts. LUNG BASES: Grossly unremarkable. Significant motion related artifacts are present. LIVER, GALLBLADDER, AND BILIARY TREE: The liver is normal in size, shape, and attenuation. No focal hepatic lesion or biliary ductal dilatation is present. The gallbladder is unremarkable with no evidence of radiopaque gallstones, gallbladder wall thickening, or obvious pericholecystic inflammatory changes. PANCREAS: Blurred pancreas, may represent subtle inflammatory changes versus motion. SPLEEN: Unremarkable. ADRENAL GLANDS: Unremarkable. KIDNEYS AND URETERS: The kidneys are normal in size, shape, and attenuation. No hydronephrosis, hydroureter, or calculi seen. No perinephric stranding. BLADDER: Unremarkable. GASTROINTESTINAL TRACT: The small and large bowel are unremarkable. The appendix is nonvisualized. Extensive fecal residual is noted within the large bowel. ABDOMINAL WALL: No significant hernia is appreciated. LYMPH NODES: There are no pathologically enlarged retroperitoneal, pelvic, groin, mesenteric lymphadenopathy present. VASCULAR: Mild atherosclerotic disease of the aorta. PELVIC VISCERA: There is no free fluid and/or free air. 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 CT/CT abdomen pelvis wo con IMPRESSION: 1. Technically limited study due to motion related artifacts. 2. Blurred pancreas, may represent subtle inflammatory changes versus motion. 3. No CT evidence of any free fluid or free air or radiopaque urinary tract calculi or obstruction. 4. 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 Fleischner guidelines were followed.
[2021-07-20 10:18] VITALS: BP 158/91; PULSE 77; RESP 18; TEMP 36.3; O2SAT 100; BMI 33.6
[2021-07-20 11:35] LABS: MANUAL DIFF FLAG NO
[2021-07-20 11:41] LABS: Basophils Absolute Auto 0.1 X10*3/uL (0.0-0.2); Basophils Percent Auto 0.9 % (0-2); Eosinophils Absolute Auto 0.1 X10*3/uL (0.0-0.4); Eosinophils Percent Auto 2.2 % (0-4); Hemoglobin 12.4 g/dl (12.0-16.0); Imm Gran Abs Auto 0.01 X10*3/uL (0.00-0.03); Imm Gran Pct Auto 0.2 % (0.0-0.4); Lymphocytes Absolute Auto 2.6 X10*3/uL (1.2-4.9); Lymphocytes Percent Auto 47.9 % (20-40); Mean Corpuscular HGB Conc 31.8 g/dl (31.0-35.0); Mean Corpuscular Hemoglobin 27.6 pg (27.0-33.0); Mean Corpuscular Volume 86.7 fL (80.0-98.0); Monocytes Absolute Auto 0.3 X10*3/uL (0.1-1.2); Monocytes Percent Auto 5.1 % (2-11); Neutrophils Absolute Auto 2.3 x10*3/uL (2.0-8.3); Neutrophils Percent Auto 43.7 % (45-73); Platelet Count 281 X10*3/uL (160-400); Red Cell Distribution Width 15.7 % (11.0-16.0); White Blood Count 5.3 X10*3/uL (4.8-10.8)
[2021-07-20 11:47] LABS: Anion Gap 10 (12-20); Blood Urea Nitrogen 10 mg/dL (9-16); Calcium 9.5 mg/dL (8.4-10.2); Carbon Dioxide 27 mmol/L (22-29); Chloride 106 mmol/L (96-108); Creatinine Clr Calc Pharmacy 74.5; Estimated Glomerular Filt Rate > 60; Glucose Random 91 mg/dL (60-115); Potassium 4.1 mmol/L (3.3-5.1); Sodium 139 mmol/L (135-145)
--- NOTE | 2021-07-20 12:30 | ED_ITS ---
HPI - Abdominal Pain General Chief Complaint: Abdominal Pain Stated Complaint: Abd pain Time Seen by Provider: 07/20/21 12:29 Source: patient Mode of arrival: ambulatory Limitations: no limitations History of Present Illness HPI narrative: Patient with sudden sharp up right quadrant pain. Never told she has gallbl adder issues. Now feeling the pain in the right groin. No N/V/D. Pain is constant but it varies in intensity. Patient denies flank pain. Denies hematuria or frequency. Patient has a history of 4 Csections MD elicited complaint: abdominal pain Onset (ago): hour(s) Pain Consistency: constant Location: RUQ and RLQ Severity: moderate Quality: sharp Associated symptoms: denies other symptoms Related Data Previous Rx's Medication Instructions Recorded clindamycin HCl 300 mg capsule 300 mg PO Q6H 10 Days #40 cap 01/06/21 oxycodone 5 mg capsule 5 mg PO Q8H PRN #9 cap 01/06/21 ondansetron 4 mg disintegrating 4 mg PO Q8H 4 Days #12 tab 07/20/21 tablet pantoprazole 40 mg tablet,delayed 40 mg PO DAILY #20 tab 07/20/21 release (Protonix) Allergies Allergy/AdvReac Type Severity Reaction Status Date / Time No Known Allergies Allergy Verified 07/20/21 10:20 Review of Systems Constitutional: Reports no additional constitutional complaints Eyes: Reports no additional eye complaints Denies dizziness Cardiovascular: Reports no additional cardiovascular complaints Respiratory: Reports as per HPI Gastrointestinal: Reports no additional gastrointestinal complaints Genitourinary: Reports no additional female genitourinary complaints Musculoskeletal: Reports no additional musculoskeletal complaints Skin/Breast: Denies rash Reports system reviewed and no additional complaints, except as documented, Denies dizziness and Denies Sensory deficit (Neuro) Psychiatric: Denies anxiety [facility] Past Medical History Medical History delivery delivered Hypertension Social History Social History Alcohol intake: never Patient Tobacco Use Status: Never used Tobacco Advance Directives: No Advance Directives Information Provided: No Physical Exam ED Vital Signs: Vital Signs - 24 hr 07/20/21 10:18 07/20/21 13:45 07/20/21 16:58 Temperature 97.4 F 98.4 F 98.3 F Pulse Rate 77 61 63 Respiratory Rate 18 14 14 Blood Pressure 158/91 H 148/87 H 144/97 H Pulse Oximetry 100 98 100 BMI result Body Mass Index 33.6 Neuro Sensory Exam: No Sensory deficit (Neuro) Course Reevaluation(s) Reevaluation #1: soft abdomen, no guarding or rebound, tolerating po will dc home Time: 17:55 MDM - Abdominal Pain Lab Data Result diagrams: 07/20/21 11:26 07/20/21 11:26 Labs: Lab Results 07/20/21 07/20/21 07/20/21 Range/Units 11:26 11:26 14:06 WBC 5.3 (4.8-10.8) X10*3/uL RBC 4.50 (4.20-5.50) X10*6/uL Hgb 12.4 (12.0-16.0) g/dl Hct 39.0 (37.0-47.0) % MCV 86.7 (80.0-98.0) fL MCH 27.6 (27.0-33.0) pg MCHC 31.8 (31.0-35.0) g/dl RDW 15.7 (11.0-16.0) % Plt Count 281 (160-400) X10*3/uL MPV 10.0 (9.4-12.3) fL Immature Gran % (Auto) 0.2 (0.0-0.4) % Neut % (Auto) 43.7 L (45-73) % Lymph % (Auto) 47.9 H (20-40) % [place] % (Auto) 5.1 (2-11) % Eos % (Auto) 2.2 (0-4) % Baso % (Auto) 0.9 (0-2) % Lymph # (Auto) 2.6 (1.2-4.9) X10*3/uL [place] # (Auto) 0.3 (0.1-1.2) X10*3/uL Eos # (Auto) 0.1 (0.0-0.4) X10*3/uL Baso # (Auto) 0.1 (0.0-0.2) X10*3/uL Abs Immat Gran (auto) 0.01 (0.00-0.03) X10*3/uL Absolute Neuts (auto) 2.3 (2.0-8.3) x10*3/uL Absolute Nucleated RBC 0.000 (0.0-0.012) X10*3/uL Nucleated RBC % (auto) 0.0 (0.0-0.2) /100WBC Sodium 139 (135-145) mmol/L Potassium 4.1 (3.3-5.1) mmol/L Chloride 106 (96-108) mmol/L Carbon Dioxide 27 (22-29) mmol/L Anion Gap 10 L (12-20) BUN 10 (9-16) mg/dL Creatinine 0.94 (0.5-1.4) mg/dL Estim Creat Clear Calc 74.5 Estimated GFR > 60 Random Glucose 91 (60-115) mg/dL Calcium 9.5 (8.4-10.2) mg/dL Total Bilirubin 0.3 (0.0-1.0) mg/dL Direct Bilirubin < 0.2 (0.0-0.5) mg/dL AST 18 (5-31) U/L ALT 21 (0-31) U/L Alkaline Phosphatase 68 (39-117) U/L Total Protein 7.5 (6.5-8.0) g/dL Albumin 4.5 (3.5-5.0) g/dL Lipase 24 (8-78) U/L Urine Color STRAW Urine Appearance CLEAR Urine pH 6.5 (5.0-8.0) Ur Specific [place] 1.010 (1.005-1.025) Urine Protein NEG (NEG-TRACE) MG/DL Urine Glucose (UA) NEG (NEG) MG/DL Urine Ketones NEG (NEG) MG/DL Urine Blood NEG (NEG) Urine Nitrite NEG (NEG) Ur Leukocyte Esterase NEG (NEG) Imaging Data CT scan - abdomen: Radiologist's impression: poor quality but grossly normal Discharge Plan Discharge Clinical Impression: Abdominal pain Patient Disposition: Home, Self-Care Instructions: Abdominal Pain (ED) Prescriptions: New pantoprazole [Protonix] 40 mg tablet,delayed release (DR/EC) 40 mg PO DAILY Qty: 20 0RF ondansetron 4 mg tablet,disintegrating 4 mg PO Q8H 4 Days Qty: 12 0RF No Action oxycodone 5 mg capsule 5 mg PO Q8H PRN (Reason: pain) Qty: 9 0RF clindamycin HCl 300 mg capsule 300 mg PO Q6H 10 Days Qty: 40 0RF Referrals: Physician,Unknown J [Primary Care Provider] - 5 days
[2021-07-20 12:55] LABS: Alanine Aminotransferase 21 U/L (0-31); Albumin Level 4.5 g/dL (3.5-5.0); Alkaline Phosphatase 68 U/L (39-117); Aspartate Amino Transferase 18 U/L (5-31); Bilirubin Direct < 0.2 mg/dL (0.0-0.5); Bilirubin Total 0.3 mg/dL (0.0-1.0); Lipase 24 U/L (8-78); Total Protein 7.5 g/dL (6.5-8.0)
[2021-07-20 13:45] VITALS: BP 148/87; PULSE 61; RESP 14; TEMP 36.9; O2SAT 98
[2021-07-20 14:17] LABS: Appearance Urine CLEAR; Color Urine STRAW; Glucose Urine UA NEG (NEG); Leukocyte Esterase Urine NEG (NEG); Nitrite Urine NEG (NEG); PH 6.5 (5.0-8.0); Urine Blood NEG (NEG); Urine Ketones NEG (NEG); Urine Protein NEG (NEG-TRACE)
[2021-07-20 16:58] VITALS: BP 144/97; PULSE 63; RESP 14; TEMP 36.8; O2SAT 100
== END 2021-07-20 18:19 | disposition home or self-care (01) ==
PROVIDERS: Emergency Provider Emergency Medicine
DX: R10.9 Unspecified abdominal pain (principal); I10 Essential (primary) hypertension
CPT/HCPCS: 36415; 74176; 80048; 80076; 81003; 83690; 85025; 99284; 99285

== ENCOUNTER 2022-07-07 14:17 | Emergency (ER) | payer OTHER, SELFPAY ==
[2022-07-07 14:25] VITALS: BP 158/80; PULSE 85; RESP 16; TEMP 37; O2SAT 98; BMI 35.0
--- NOTE | 2022-07-07 15:05 | ED.EPISTAXIS ---
History of Present Illness General Chief Complaint: Epistaxis Stated Complaint: Nose bleed Time Seen by Provider: 07/07/22 14:41 History of Present Illness HPI Narrative: patient complains of nosebleed from the left side of her nose which began spontaneously today without injury, she is not on blood thinners It also happened once yesterday and resolved over reasonable amount of time, she has no rash no bleeding from any other site, she does not feel lightheaded or dizzy Related Data Previous Rx's Medication Instructions Recorded clindamycin HCl 300 mg capsule 300 mg PO Q6H 10 days #40 caps 01/06/21 oxycodone 5 mg capsule 5 mg PO Q8H PRN pain #9 caps 01/06/21 ondansetron 4 mg disintegrating 4 mg PO Q8H 4 days #12 tabs 07/20/21 tablet pantoprazole 40 mg tablet,delayed 40 mg PO DAILY #20 tabs 07/20/21 release (Protonix) Allergies Allergy/AdvReac Type Severity Reaction Status Date / Time No Known Allergies Allergy Verified 07/07/22 14:25 [facility] Past Medical History Source: nursing notes reviewed Medical History delivery delivered Hypertension Social History Social History Alcohol intake: never Patient Tobacco Use Status: Never used Tobacco Smoked in Last 30 Days: No Use of substances other than those prescribed or required for medical reasons: No Advance Directives: No Advance Directives Information Provided: Yes Patient : No Physical Exam Vital Signs: Vital Signs: Last Vital Signs Temp 98.6 F 07/07/22 14:25 Pulse 85 07/07/22 14:25 Resp 16 07/07/22 14:25 BP 158/80 H 07/07/22 14:25 Pulse Ox 98 07/07/22 14:25 O2 Del Method 07/07/22 14:25 BMI result Body Mass Index 35.0 General appearance is no acute distress The nose exam there is some clotted blood in the left nostril there is no active bleeding Pharynx there is no bleeding down the posterior pharynx Respiratory no distress Skin there are no petechiae no purpura Course Course Course Narrative: patient had been applying pressure and by the time I saw her the nosebleed had resolved, the pharynx exam was normal no bleeding down the back throat and patient was advised to keep pressure for another 10 minutes and then recheck no nose bleed and she was discharged well-appearing Medications Administered Discontinued Medications Generic Name Dose Route Start Last Admin Trade Name Zohra PRN Reason Stop Dose Admin Oxymetazoline HCl 2 spray 07/07/22 15:11 07/07/22 15:18 Oxymetazoline Hcl 0.05 % Nasal 15 Ml [place] NOSTRIL-B 07/07/22 15:12 2 spray ONCE ONE Administration Discharge Plan Discharge Clinical Impression: Epistaxis Patient Disposition: Home, Self-Care Additional Instructions: nosebleed resolved with application of pressure in the place that you were shown to do, if nosebleed comes back it will almost always stop if you apply pressure for 10 minutes same as you did here today on the soft part of the nose You can also use Afrin spray which is a decongestant spray which tightness the blood vessels in also helps to prevent nosebleeds you can use that twice a day for 2 or 3 days, a humidifier helps, applying Vaseline inside the nose may help Return any time for uncontrolled bleeding any worse condition or any concerns Prescriptions: No Action oxycodone 5 mg capsule 5 mg PO Q8H PRN (Reason: pain) Qty: 9 0RF clindamycin HCl 300 mg capsule 300 mg PO Q6H 10 Days Qty: 40 0RF pantoprazole [Protonix] 40 mg tablet,delayed release (DR/EC) 40 mg PO DAILY Qty: 20 0RF ondansetron 4 mg tablet,disintegrating 4 mg PO Q8H 4 Days Qty: 12 0RF Interventions: ED Discharge Assessment Last Done: 07/07/22 15:26 Discharge Date/Time: 07/07/22 15:27
[2022-07-07] MEDS: Oxymetazoline HCl 0.05 % Nasal 15 ML SPRAY 2 SPRAY NOSTRIL-B (15:18)
--- NOTE | 2022-07-07 15:20 | PC.NURSE ---
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
== END 2022-07-07 15:27 | disposition home or self-care (01) ==
PROVIDERS: Emergency Provider Emergency Medicine
DX: R04.0 Epistaxis (principal); Z79.899 Other long term (current) drug therapy
CPT/HCPCS: 99283

== ENCOUNTER → 2022-08-14 09:49 | Outpatient (BNVA) | payer OTHER, SELFPAY | PROVIDERS: Visit Provider Physician Assistant Medical | DX: Z13.89 Encounter for screening for other disorder (principal) | CPT/HCPCS: 99213 ==

== ENCOUNTER → 2022-09-04 09:42 | Outpatient (BNVA) | payer OTHER, SELFPAY | PROVIDERS: PCP Internal Medicine; Visit Provider Physician Assistant Medical | DX: Z13.89 Encounter for screening for other disorder (principal) | CPT/HCPCS: 99213 ==

== ENCOUNTER 2022-09-07 13:00 | Outpatient (RCR) | payer OTHER, SELFPAY ==
--- NOTE | 2022-10-06 13:47 | MHC.OT.DC ---
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 Low tolerance lifting > 1 lb. Pain improved with CP Electronically Signed By: Priya Armstrong OT CHT CLT Reviewed/agree with student documentation: Therapist: Please Sign and return to therapist, thank you for your referral.
== END 2022-10-06 13:47 | disposition home or self-care (01) ==
LOC: HO.OT 13:00
PROVIDERS: PCP Internal Medicine; Visit Provider Physician Assistant Medical
DX: S63.601D Unspecified sprain of right thumb, subsequent encounter (principal)
CPT/HCPCS: 29125; 97110; 97140; 97166; 97760

== ENCOUNTER → 2022-09-19 09:48 | Outpatient (BNVA) | payer OTHER, SELFPAY | PROVIDERS: PCP Internal Medicine; Visit Provider Physician Assistant Medical | DX: Z13.89 Encounter for screening for other disorder (principal) | CPT/HCPCS: 99213 ==

== ENCOUNTER 2023-12-16 13:28 | Emergency (ER) | payer OTHER, SELFPAY ==
--- NOTE | ~2023-12-16 | XR_ITS ---
EXAMINATION: XR HAND/WRIST, RIGHT XR HAND/WRIST, LEFT CLINICAL INFORMATION: Pain for months. COMPARISON: None TECHNIQUE: Four views of the each hand and wrist. FINDINGS: RIGHT HAND/WRIST: The bones and soft tissues are normal. No fracture. Alignment is anatomic. Joint spaces are maintained. No erosions or soft tissue calcifications. LEFT HAND/WRIST: The bones and soft tissues are normal. No fracture. Alignment is anatomic. Joint spaces are maintained. No erosions or soft tissue calcifications. XR/XR hand wrist RT IMPRESSION: Normal radiographs of the hands and wrists. Electronically signed by: Cecile Jolly MD 12/16/2023 03:29 PM EDT
[2023-12-16 13:52] VITALS: BP 162/75; PULSE 69; RESP 18; TEMP 36.8; O2SAT 100; BMI 35.9
--- NOTE | 2023-12-16 13:53 | ED.UPPEXIN ---
HPI - Extremity Injury (Upper) General Chief Complaint: Extremity Injury, Upper Stated Complaint: R hand pain Time Seen by Provider: 12/16/23 15:54 Source: patient Mode of arrival: ambulatory Limitations: no limitations History of Present Illness ED Provider: calixto KRUGER narrative: Patient is a 53-year-old right hand dominant female presenting to the emergency department with complaint of right wrist and hand pain for the past 3+ months. 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 Denies fall or other trauma. Has been taking Aleve and a muscle relaxer without relief. Denies any decreased range of motion. Some relief from wrist brace. complaint: injury to: right, wrist and hand Onset (ago): month(s) Other Extremity Injury: right: hand and wrist Other injuries: none Handedness: right Severity: severe Relieving factors: immobilization and rest Exacerbating factors: movement of extremity Treatments prior to arrival: NSAIDS and other Related Data Previous Rx's ?Medication ?Instructions ?Recorded clindamycin HCl 300 mg capsule 300 mg PO Q6H 10 days #40 caps 01/06/21 oxycodone 5 mg capsule 5 mg PO Q8H PRN pain #9 caps 01/06/21 ondansetron 4 mg disintegrating 4 mg PO Q8H 4 days #12 tabs 07/20/21 tablet pantoprazole 40 mg tablet,delayed 40 mg PO DAILY #20 tabs 07/20/21 release (Protonix) naproxen 500 mg tablet 500 mg PO BID PRN pain #30 tabs 08/09/22 prednisone 20 mg tablet See Rx Instructions .Route 12/16/23 .COMPLEX #18 tabs Allergies Allergy/AdvReac Type Severity Reaction Status Date / Time No Known Allergies Allergy Verified 12/16/23 13:54 Review of Systems Review of Systems: As per HPI Yes all other systems are reviewed and are negative Constitutional: Constitutional: Reports as per HPI [facility] Past Medical History Medical History delivery delivered Hypertension Social History Social History Alcohol intake: never Patient Tobacco Use Status: Never used Tobacco Physical Exam Vital Signs: Vital Signs: Last Vital Signs Temp 98.3 F 12/16/23 13:52 Pulse 69 12/16/23 13:52 Resp 18 12/16/23 13:52 BP 162/75 H 12/16/23 13:52 Pulse Ox 100 12/16/23 13:52 O2 Del Method Room Air 12/16/23 13:52 BMI result Body Mass Index 35.9 Vital signs have been reviewed and appear to be correct. Blood pressure elevated. Heart rate normal. Respiratory rate normal. Temperature normal. Oxygen saturation normal. Const: General: cooperative, healthy appearing and no acute distress Orientation/consciousness: oriented to person, oriented to place, oriented to time and patient oriented x3 Limitations: no limitations HEENT: Head: Yes normocephalic and Yes atraumatic Ears: external ears normal General nose exam: Normal external nose present Face and sinus: Yes face symmetric Mouth: oropharynx normal and moist mucous membranes Throat: Yes uvula midline Eyes: Pupils: Equal, round and reactive pupils present Neck: Neck: Yes normal visual inspection and Yes supple Resp: Effort & Inspection: normal respiratory effort and able to speak in complete sentences Auscultation: clear to auscultation bilaterally Cardio: Rate: regular rate Rhythm: regular rhythm Heart sounds: S1 normal heart sound present and S2 normal heart sound present GI: Palpation (GI): Soft to palpation and nontender Auscultation: normoactive bowel sounds : General: Yes no CVA tenderness Back/Spine/Pelvis: Back: no CVA tenderness Skin: General skin exam: elasticity normal and turgor normal Neuro: General: oriented to person, oriented to place, oriented to time, patient oriented x3, moves all extremities, no focal motor deficits and CN's II-XI intact bilaterally Cranial nerves: Yes Equal, round and reactive pupils present Cognition (Neuro): normal cognition Extrem: General: Yes full ROM, Yes no pedal edema and Yes no calf tenderness Right upper extremity: wrist Details: normal to inspection, normal ROM and radial pulse present Details: 2+; no swelling, no unusual warmth, no ecchymosis, Tinel's positive and Phalen's positive and Extremity exam: right hand Details: normal to inspection, normal capillary refill, neuromotor exam normal, neurosensory exam normal and normal ROM of fingers Psych: Mental Status: mental status grossly normal Affect: normal affect Thought process: Normal thought process present Course Course Course Narrative: This is a rapid medical exam performed by C. Calixto, [place] SPECIALIST: Additional HPI, ROS, PE not included below will be deferred to primary provider. Patient is a 53-year-old right hand dominant female presenting with several months of right hand pain. Has been taking Aleve and muscle relaxer without relief. Arrives with wrist brace on. Plan: xray Medical Decision Making Medical Decision Making [facility] Narrative: Patient is a 53-year-old right hand dominant female presenting to the emergency department with complaint of right wrist and hand pain for the past 3+ months. On exam patient is awake, A+Ox3, VS WNL, afebrile, normal neurological exam without focal deficits, physical exam findings as above. Given reported symptoms and physical exam findings, initial differential includes carpal tunnel, strain, sprain, fracture. X-ray right wrist and hand notable for no evidence of fracture. My interpretation is in agreement with the radiologist's interpretation. Results discussed with patient and all questions answered. Instructed patient to follow up with PCP. Will treat with tapering course of prednisone. Advised continued use of wrist brace, apply ice intermittently, NSAIDs after steroids. Return precautions discussed. Patient verbalized understanding of and agreement with plan. Differential Diagnosis Differential Diagnoses: The differential diagnosis associated with the presentation includes as per [facility] Independent Interpretation I performed an independent interpretation of an: Plain X-Ray Interpretation: X-ray right wrist and hand notable for no evidence of fracture. Radiology Impression Discussion of test interpretation with radiology: I have reviewed the radiologist's reading. Radiologist Impression: XR/XR hand wrist RT IMPRESSION: Normal radiographs of the hands and wrists. External Record Review External record reviewed: Inpatient record, Office record and Outpatient record Prescription Management I considered prescription management with: Other Discharge Plan Discharge Clinical Impression: Chronic pain of right wrist Patient Disposition: Home, Self-Care Instructions: Paresthesia (ED), Carpal Tunnel Surgery (DC) Additional Instructions: You were evaluated in the emergency department today for right wrist pain. You are being treated with a course of steroids to decrease inflammation. Please complete the full course as prescribed. Follow up with your primary care provider for further evaluation of your symptoms. Return to the emergency department if you develop new weakness, fever, change of color in your arm or any other concerning symptoms. Prescriptions: New prednisone 20 mg tablet See Rx Instructions .ROUTE .COMPLEX Qty: 18 0RF Rx Instructions: 60mg (3 tabs) x 3 days, then 40mg (2 tabs) x 3 days, then 20mg (1 tab) x 3 days No Action oxycodone 5 mg capsule 5 mg PO Q8H PRN (Reason: pain) Qty: 9 0RF clindamycin HCl 300 mg capsule 300 mg PO Q6H 10 Days Qty: 40 0RF pantoprazole [Protonix] 40 mg tablet,delayed release (DR/EC) 40 mg PO DAILY Qty: 20 0RF ondansetron 4 mg tablet,disintegrating 4 mg PO Q8H 4 Days Qty: 12 0RF naproxen 500 mg tablet 500 mg PO BID PRN (Reason: pain) Qty: 30 0RF Stand Alone Forms: Work/School Release Print Language: Faroese
[2023-12-16] MEDS: predniSONE 20 MG TABLET 60 MG PO (15:55)
[2023-12-16 16:04] VITALS: BP 162/75; PULSE 69; RESP 18; TEMP 36.8; O2SAT 100
== END 2023-12-16 16:05 | disposition home or self-care (01) ==
LOC: HO.ED 16:03
PROVIDERS: Emergency Provider Emergency Medicine
DX: M25.531 Pain in right wrist (principal); M79.641 Pain in right hand
CPT/HCPCS: 73110; 73130; 99282; 99283; 99284